=== PATIENT | male | born 1960 | race Caucasian/White ===

== ENCOUNTER → 2019-01-17 | Day surgery (SDC) | payer BC ==
[~2019-01-17] MED LIST: AMLO5TAB10 PO; IV RINGERS,LACTATED 1000ML 1,000 ML IV SCH; LISI-338 PO; METF500T16 PO; PRAV40TA2 PO; PROPOFOL 40 ML IV ONE; VALA500T PO
[2019-01-17 08:42] VITALS: BP 136/84
--- NOTE | 2019-01-17 21:46 | CONS ---
DATE OF CONSULTATION: 01/17/2019 REFERRING PHYSICIAN: BLANCA Rush. REASON: Colorectal screening. HISTORY OF PRESENT ILLNESS: A 58-year-old male with past medical history significant for hypertension, diabetes and hyperlipidemia, seen for screening colon exam. Bowel habits are regular without diarrhea or constipation. Weight and appetite are stable. There has been no melena and/or hematochezia. No family history of colon cancer, polyps is elicited. He is otherwise without additional complaints. PAST MEDICAL HISTORY: Hypertension, diabetes, hyperlipidemia. ALLERGIES: CODEINE. MEDICATIONS: Include amlodipine, lisinopril, metformin, pravastatin, valacyclovir. FAMILY AND SOCIAL HISTORY: Significant for high blood pressure with multiple family members, breast cancer with a sister, diabetes with a brother. He is a social drinker and not a smoker. PAST SURGICAL HISTORY: Noncontributory. REVIEW OF SYSTEMS: Per records. PHYSICAL EXAMINATION: GENERAL: Reveals a well-nourished, well-developed male, who is alert and cooperative in no acute distress. VITAL SIGNS: Temperature 97.7, pulse 84, respiratory rate 16. HEENT: Reveals normocephalic and atraumatic head. Pupils and extraocular muscles are not tested. Sclerae are icteric. NECK: Supple. LUNGS: Clear. CARDIOVASCULAR: Reveals an S1, S2 without S3, S4 or appreciable murmur. ABDOMEN: Reveals soft abdomen, normoactive bowel sounds, without appreciable hepatosplenomegaly. EXTREMITIES: Reveals no cyanosis, clubbing or edema. IMPRESSION: Colorectal screening. Risks and benefits of procedure including risk of hemorrhage and perforation during the operation have been discussed. The patient is willing to proceed at this time. I would like to thank, BLANCA Rush, for allowing us to consult and participate in the patient's care. ESTHER BAL MD DR: JANENE/james JOB#: [id number] / [id number] SARAH Rolon
== END | disposition home or self-care (01) ==
LOC: SURG 07:12
PROVIDERS: ATTEND Internal Medicine Gastroenterology
DX: Z12.11 Encounter for screening for malignant neoplasm of colon (principal); K57.30 Diverticulosis of large intestine without perforation or abscess without bleeding; K64.0 First degree hemorrhoids; I10 Essential (primary) hypertension; E11.9 Type 2 diabetes mellitus without complications; E78.5 Hyperlipidemia, unspecified; Z88.5 Allergy status to narcotic agent; Z79.84 Long term (current) use of oral hypoglycemic drugs; Z79.899 Other long term (current) drug therapy; Z82.49 Family history of ischemic heart disease and other diseases of the circulatory system; Z83.3 Family history of diabetes mellitus
CPT/HCPCS: 45378; J2704

== ENCOUNTER 2019-05-02 11:51 | Emergency (ER) | payer BC ==
[~2019-05-02] VITALS: Ht 175.3 cm; Wt 79.4 kg
[~2019-05-02 11:51] MED LIST changes: +CEPH-264 PO; -IV RINGERS,LACTATED 1000ML 1,000 ML IV SCH; -PROPOFOL 40 ML IV ONE; +TAMS0.4C97 PO
[2019-05-02] MEDS ORDERED: cefTRIAXone IM 250 MG VIAL IM ONE (13:15)
[2019-05-02] MEDS ORDERED: ONDANSETRON PF 4 MG/2 ML VIAL. IV ONE (13:15)
[2019-05-02] MEDS ORDERED: AZITHROMYCIN 250 MG TABLET. PO ONE (13:15)
[2019-05-02] MEDS ORDERED: IV NORMAL SALINE 1000ML BAG 1,000 ML IV ONE (13:15)
[2019-05-02 13:17] LABS: BILIRUBIN,URINE NEGATIVE (NEG); CLARITY,URINE CLOUDY; COLOR,URINE YELLOW; NITRITE,URINE NEGATIVE (NEG); PROTEIN,URINE >=300 mg/dL (NEG-TRACE); UROBILINOGEN,URINE 0.2 mg/dL (0.2 mg/dL)
[2019-05-02 13:24] LABS: BACTERIA,URINE MANY /HPF (0-FEW); WBC,URINE TNTC /HPF (0-4)
[2019-05-02 13:28] LABS: BASO # 0.1 x10^3/uL (0.0-0.2); BASO % 1 % (0-3); EOS % 0 % (0-3); HEMATOCRIT 39.7 % (39.0-53.0); HEMOGLOBIN 13.6 g/dL (13.0-17.5); LYMPH # 1.7 x10^3/uL (1.0-4.8); LYMPH % 14 % (24-48); MEAN CORPUSCULAR HEMOGLOBIN 32 pg (25-35); MEAN CORPUSCULAR HGB CONC 34 g/dL (31-37); MEAN CORPUSCULAR VOLUME 92 fL (79-100); MONO # 1.8 x10^3/uL (0.0-1.1); MONO % 14 % (0-9); NEUT # 8.9 x10^3/uL (1.8-7.7); NEUT % 71 % (31-73); PLATELET COUNT 147 x10^3/uL (140-400); RED CELL DISTRIBUTION WIDTH 13.5 % (11.5-14.5); WHITE BLOOD COUNT 12.5 x10^3/uL (4.0-11.0)
[2019-05-02 13:38] LABS: CALCIUM 9.1 mg/dL (8.5-10.1); CREATININE 1.2 mg/dL (0.7-1.3); GFR 62.2; POTASSIUM 3.7 mmol/L (3.5-5.1)
[2019-05-02 13:43] LABS: ALBUMIN 3.5 g/dL (3.4-5.0); ALBUMIN/GLOBULIN RATIO 0.7 (1.0-1.7); TOTAL PROTEIN 8.2 g/dL (6.4-8.2)
[2019-05-02] MEDS ORDERED: cefTRIAXone IV Push 1 GM VIAL. IVP ONE (14:00)
--- NOTE | 2019-05-02 14:28 | RAD ---
Examination: CT of the abdomen pelvis without contrast HISTORY: History of blood in the uterine COMPARISON: 03/21/2019 TECHNIQUE: Axial CT images of the abdomen pelvis were performed without contrast. Coronal and sagittal reformats are performed. Exposure: One or more of the following individualized dose reduction techniques were utilized for this examination: 1. Automated exposure control 2. Adjustment of the mA and/or kV according to patient size 3. Use of iterative reconstruction technique FINDINGS: Minimal bibasilar lung atelectasis. No evidence of free air identified in the abdomen. The evaluation of the solid organs is limited due to lack of IV contrast. The evaluation of bowel is limited due to lack of oral contrast. The visualized noncontrasted liver, demonstrates few calcified granulomas. The visualized spleen, adrenals grossly appears unremarkable. Gallbladder is mildly distended. The stomach is minimally distended. The visualized pancreas grossly appears unremarkable. The small bowel is nondilated. The appendix is normal. Feces and gas noted in the colon. Multiple colonic diverticulosis identified. Urinary bladder is mildly distended. There is mild thickened appearance of the wall of the urinary bladder. There is mild fat stranding identified about the left kidney and bilateral ureters. Mild degenerative changes thoracolumbar spine. IMPRESSION: 1. Mild fat stranding identified about the left kidney and the bilateral ureters. The fat stranding is seen all along the bilateral ureters, left greater than right. There is mild thickened appearance of the wall of the urinary bladder. Underlying neoplasm is not excluded. Recommend follow-up CT urogram to exclude malignancy. Other possibility includes pyelonephritis. Correlate clinically and with lab values. Electronically signed by: George Perkins MD (05/02/2019 2:25 PM) [facility]
[2019-05-02] MEDS ORDERED: CIPR500T94 PO (14:47)
--- NOTE | 2019-05-02 14:48 | PHYS DOC ---
Past Medical History Past Medical History: Diabetes-Type II, High Cholesterol, Hypertension Additional Past Medical Histor: genital herpes, HSV Past Surgical History: No Surgical History Alcohol Use: Heavy Drug Use: None Adult General Chief Complaint Chief Complaint: FLANK PAIN HPI HPI Patient is a 58 year old AA male who presents to the ER with complaints of dysuria and abnormal penile discharge. Pt states he was admitted here at the beginning of March for pyelonephritis and he feels like it is coming back. Pt reports dysuria x5 days and abnormal yellowish white penile discharge for the last 3 days. He currently rates his bilateral flank pain a 5/10 on the pain scale, there are no alleviating or exacerbating factors. ROS Pt denies any fever, hematuria, vomiting, or diarrhea. He reports bilateral flank pain with increased urinary frequency, dysuria, and irregular penile discharge. Pt denies shortness of breath, cough, or sore throat. He denies being tested for any STIs recently. All other ROS is neg unless otherwise noted in HPI. Review of Systems Review of Systems See Above Current Medications Current Medications Current Medications Medications (Trade) Dose Ordered Sig/Donnie Start Time Stop Time Status Last Admin Dose Admin Azithromycin (Zithromax) 1,000 mg 1X ONCE 05/02/19 13:15 05/02/19 13:16 DC 05/02/19 13:28 1,000 MG Ceftriaxone Sodium (Rocephin Im) 250 mg 1X ONCE 05/02/19 13:15 05/02/19 13:16 Cancel Ceftriaxone Sodium (Rocephin) 1 gm 1X ONCE 05/02/19 14:00 05/02/19 14:01 DC 05/02/19 14:25 1 GM Ondansetron HCl (Zofran) 4 mg 1X ONCE 05/02/19 13:15 05/02/19 13:16 DC 05/02/19 13:28 4 MG Sodium Chloride 1,000 ml @ 1,000 mls/hr 1X ONCE 05/02/19 13:15 05/02/19 14:14 DC 05/02/19 13:28 1,000 MLS/HR Allergies Allergies Allergies Coded Allergies Type Severity Reaction Last Updated Verified codeine Allergy Intermediate Rash 01/17/19 Yes Milk Containing Products Adverse Reaction Intermediate Diarrhea 03/23/19 Yes soybean Adverse Reaction Intermediate Diarrhea 03/23/19 Yes Physical Exam Physical Exam See Above Constitutional: Well developed, well nourished, no acute distress, non-toxic appearance. [] HENT: Normocephalic, atraumatic, bilateral external ears normal, oropharynx moist, no oral exudates, nose normal. [] Eyes: PERRLA, EOMI, conjunctiva normal, no discharge. [] Neck: Normal range of motion, no stridor. [] Cardiovascular:Heart rate regular rhythm, no murmur [] Lungs & Thorax: Bilateral breath sounds clear to auscultation [] Abdomen: Bowel sounds normal, soft, no tenderness, no masses, no pulsatile masses. [] Skin: Warm, dry, no erythema, no rash. [] Back: No CVA tenderness. [] Extremities: No cyanosis, ROM intact, no edema. [] Neurologic: Alert and oriented X 3, no focal deficits noted. [] Psychologic: Affect normal, judgement normal, mood normal. [] Current Patient Data Vital Signs Vital Signs Date Time Temp Pulse Resp B/P (MAP) Pulse Ox O2 Delivery O2 Flow Rate FiO2 05/02/19 14:56 96 16 129/64 (85) 98 Room Air 05/02/19 12:20 98.5 98.5 Lab Values Laboratory Tests Test 05/02/19 12:20 05/02/19 13:15 Urine Collection Type Void Urine Color Yellow Urine Clarity Cloudy Urine pH 6.0 Urine Specific [place] 1.015 Urine Protein >=300 mg/dL (NEG-TRACE) Urine Glucose (UA) Negative mg/dL (NEG) Urine Ketones (Stick) Negative mg/dL (NEG) Urine Blood Large (NEG) Urine Nitrite Negative (NEG) Urine Bilirubin Negative (NEG) Urine Urobilinogen Dipstick 0.2 mg/dL (0.2 mg/dL) Urine Leukocyte Esterase Large (NEG) Urine RBC 3-5 /HPF (0-2) Urine WBC Tntc /HPF (0-4) Urine Bacteria Many /HPF (0-FEW) White Blood Count 12.5 x10^3/uL (4.0-11.0) H Red Blood Count 4.30 x10^6/uL (4.30-5.70) Hemoglobin 13.6 g/dL (13.0-17.5) Hematocrit 39.7 % (39.0-53.0) Mean Corpuscular Volume 92 fL (79-100) Mean Corpuscular Hemoglobin 32 pg (25-35) Mean Corpuscular Hemoglobin Concent 34 g/dL (31-37) Red Cell Distribution Width 13.5 % (11.5-14.5) Platelet Count 147 x10^3/uL (140-400) Neutrophils (%) (Auto) 71 % (31-73) Lymphocytes (%) (Auto) 14 % (24-48) L Monocytes (%) (Auto) 14 % (0-9) H Eosinophils (%) (Auto) 0 % (0-3) Basophils (%) (Auto) 1 % (0-3) Neutrophils # (Auto) 8.9 x10^3/uL (1.8-7.7) H Lymphocytes # (Auto) 1.7 x10^3/uL (1.0-4.8) Monocytes # (Auto) 1.8 x10^3/uL (0.0-1.1) H Eosinophils # (Auto) 0.0 x10^3/uL (0.0-0.7) Basophils # (Auto) 0.1 x10^3/uL (0.0-0.2) Sodium Level 139 mmol/L (136-145) Potassium Level 3.7 mmol/L (3.5-5.1) Chloride Level 101 mmol/L (98-107) Carbon Dioxide Level 26 mmol/L (21-32) Anion Gap 12 (6-14) Blood Urea Nitrogen 10 mg/dL (8-26) Creatinine 1.2 mg/dL (0.7-1.3) Estimated GFR (Cockcroft-Gault) 62.2 BUN/Creatinine Ratio 8 (6-20) Glucose Level 161 mg/dL (70-99) H Calcium Level 9.1 mg/dL (8.5-10.1) Total Bilirubin 1.0 mg/dL (0.2-1.0) Aspartate Amino Transferase (AST) 19 U/L (15-37) Alanine Aminotransferase (ALT) 35 U/L (16-63) Alkaline Phosphatase 80 U/L (46-116) Total Protein 8.2 g/dL (6.4-8.2) Albumin 3.5 g/dL (3.4-5.0) Albumin/Globulin Ratio 0.7 (1.0-1.7) L Laboratory Tests 05/02/19 13:15 Laboratory Tests 05/02/19 13:15 EKG EKG [] Radiology/Procedures Radiology/Procedures PROCEDURE: CT ABDOMEN PELVIS WO CONTRAST Examination: CT of the abdomen pelvis without contrast HISTORY: History of blood in the uterine COMPARISON: 03/21/2019 TECHNIQUE: Axial CT images of the abdomen pelvis were performed without contrast. Coronal and sagittal reformats are performed. Exposure: One or more of the following individualized dose reduction techniques were utilized for this examination: 1. Automated exposure control 2. Adjustment of the mA and/or kV according to patient size 3. Use of iterative reconstruction technique FINDINGS: Minimal bibasilar lung atelectasis. No evidence of free air identified in the abdomen. The evaluation of the solid organs is limited due to lack of IV contrast. The evaluation of bowel is limited due to lack of oral contrast. The visualized noncontrasted liver, demonstrates few calcified granulomas. The visualized spleen, adrenals grossly appears unremarkable. Gallbladder is mildly distended. The stomach is minimally distended. The visualized pancreas grossly appears unremarkable. The small bowel is nondilated. The appendix is normal. Feces and gas noted in the colon. Multiple colonic diverticulosis identified. Urinary bladder is mildly distended. There is mild thickened appearance of the wall of the urinary bladder. There is mild fat stranding identified about the left kidney and bilateral ureters. Mild degenerative changes thoracolumbar spine. IMPRESSION: 1. Mild fat stranding identified about the left kidney and the bilateral ureters. The fat stranding is seen all along the bilateral ureters, left greater than right. There is mild thickened appearance of the wall of the urinary bladder. Underlying neoplasm is not excluded. Recommend follow-up CT urogram to exclude malignancy. Other possibility includes pyelonephritis. Correlate clinically and with lab values. Electronically signed by: George Perkins MD (05/02/2019 2:25 PM) [id number] [] Course & Med Decision Making Course & Med Decision Making Pertinent Labs and Imaging studies reviewed. (See chart for details) dx: Pyelonephritis, contact with and suspected exposure to sexually transmitted infection Patient was given 1 L of normal saline in the emergency department. He was also given prophylactic treatment for suspected sexually transmitted infection, 1000 mg of Zithromax was given by mouth, and 1 g of Rocephin was given IV. Patient's urine had a large amount of white blood cells, too many to count, WBC 12.5, CMP glucose [address] abd/pel: Mild fat stranding identified about the left kidney and the bilateral ureters. The fat stranding is seen all along the bilateral ureters, left greater than right. There is mild thickened appearance of the wall of the urinary bladder. Underlying neoplasm is not excluded. Prescription was written for Ciprofloxacin 500 mg PO BID x7 days. Pt was instructed to avoid having intercourse until he knows STD results. If either or both of the tests is positive you need to notify any partners and tell them to seek treatment also. Follow-up with Dr. Cates with urology for further francheska luation and treatment of your urinary tract infections. Return to the ER if your symptoms worsen. Patient verbalized an understanding of home care, medications, follow-up, and return to ED instructions and was in agreement with the plan of care. [] Dragon Disclaimer Dragon Disclaimer This electronic medical record was generated, in whole or in part, using a voice recognition dictation system. Departure Departure Impression: Primary Impression: Pyelonephritis Additional Impressions: UTI (urinary tract infection) Contact with and (suspected) exposure to infections with a predominantly sexual mode of transmission Disposition: HOME, SELF-CARE Condition: STABLE Referrals: SARAH WIGGINS (PCP) CARMEN CATES MD Patient Instructions: Pyelonephritis, Adult, [id number], Sexually Transmitted Disease, [id number] Additional Instructions: You were treated for a suspected STI today, the results of your gonorrhea and chlamydia testing will not be available for 48 hours. Avoid having intercourse until you know these results. If either or both of the tests is positive you need to notify any partners and tell them to seek treatment also. Follow-up with Dr. Cates with urology for further evaluation and treatment of your urinary tract infections. Return to the ER if your symptoms worsen. Scripts Ciprofloxacin Hcl (CIPRO) 500 Mg Tablet 1 TAB PO BID for 7 Days, #14 TAB 0 Refills Prov: CRISTINO CARRION [facility] 05/02/19 Problem Qualifiers Additional Impressions: UTI (urinary tract infection) Urinary tract infection type: acute pyelonephritis Qualified Codes: N10 - Acute pyelonephritis CRISTINO CARRION [facility]IER GENERAL May 02, 2019 14:48
[2019-05-02 14:56] VITALS: BP 129/64
== END 2019-05-02 15:00 | disposition home or self-care (01) ==
LOC: ER 11:51
DX: N10 Acute pyelonephritis (principal); Z20.2 Contact with and (suspected) exposure to infections with a predominantly sexual mode of transmission; E11.9 Type 2 diabetes mellitus without complications; E78.00 Pure hypercholesterolemia, unspecified; I10 Essential (primary) hypertension; F10.20 Alcohol dependence, uncomplicated; Y90.9 Presence of alcohol in blood, level not specified; Z88.5 Allergy status to narcotic agent; Z91.011 Allergy to milk products; Z91.018 Allergy to other foods
CPT/HCPCS: 36415; 74176; 80053; 81001; 85025; 87086; 87186; 87491; 87591; 96374; 96375; 99285; J0696; J2405; J7030; Q0144

== ENCOUNTER → 2020-12-16 | Outpatient (CLI) | payer BC ==
[~2020-12-16] MED LIST changes: +AMLO-186 PO; -AMLO5TAB10 PO; +CIPR500T94 PO; -LISI-338 PO; +LISI-517 PO; -VALA500T PO; +VALA500T9 PO
--- NOTE | 2020-12-16 11:46 | KCIC ---
Noncontrast CT scan of the abdomen and pelvis compared to similar exam dated May 02, 2019 for inte rmittent right inguinal pain for 6 months. TECHNIQUE: Contiguous axial CT images are obtained from the apex of diaphragm to the pelvic floor. Sa gittal and coronal reformations are evaluated. FINDINGS: Lung bases are clear. There are no suspicious osteoblastic or osteolytic bone lesions ident ified. There are multiple cecal and sigmoid diverticula, with no evidence of acute diverticulitis. Ev aluation of large and small bowel is limited by lack of oral contrast, however there is no evidence o f bowel obstruction. The appendix is normal. Urinary bladder is fluid distended and grossly unremarka ble. Prostate is enlarged. No suspicious mesenteric or retroperitoneal adenopathy. No morphologic abn ormalities of the liver, spleen, pancreas, bilateral adrenal glands, or bilateral kidneys. No hydrone phrosis or hydroureter. No nephrolithiasis. No ureterolithiasis. Gallbladder is unremarkable. No ingu inal hernias are identified. There are round calcifications in the right scrotum which have an appear ance consistent with phleboliths, and may be due to a right varicocele. This could be better interrog ated with scrotal ultrasound, as this area is not entirely included on the exam today. Several normal -sized bilateral inguinal lymph nodes are present. No significant vascular anomalies. IMPRESSION: 1. No acute abnormalities of the abdomen or pelvis. Specifically no inguinal hernias or renal or uret eral calculi. 2. Right scrotal phleboliths, perhaps due to an underlying scrotal varicocele. Consider scrotal ultra sound for further evaluation. PQRS Compliance Statement: One or more of the following individualized dose reduction techniques were utilized for this examinat ion: 1. Automated exposure control 2. Adjustment of the mA and/or kV according to patient size 3. Use of iterative reconstruction technique Electronically signed by: Nirav Oliveira MD (12/16/2020 11:44 AM) [id number]
== END ==
LOC: KCIC CT 08:36
PROVIDERS: ATTEND Nurse Practitioner Family
DX: I86.1 Scrotal varices (principal); I87.8 Other specified disorders of veins
CPT/HCPCS: 74176